=== PATIENT | female | born 1995 | race Caucasian/White ===

== ENCOUNTER 2017-04-03 20:34 | Emergency (ER) | payer OTHER ==
[~2017-04-03] VITALS: Ht 162.6 cm; Wt 93.9 kg
[~2017-04-03 20:34] MED LIST: LISD50CA4 PO; NEOM1SUS21 OT; VENL-273 PO
[2017-04-03 20:36] VITALS: TEMP 36.9; Ht 162.6 cm; Wt 93.9 kg
[2017-04-03] MEDS ORDERED: LORAZEPAM 1 MG TAB SL STA (20:56)
--- NOTE | 2017-04-03 21:16 | EMERGENCY ROOM VISIT NOTE ---
History Report prepared by James: Bridgett Duffy Under the Supervision of: Dr. Dallas Echevarria D.O. First contact with patient: 20:42 Chief Complaint: ANXIETY Stated Complaint: ANIXETY ATTACK History of Present Illness The patient is a 21 year old female who presents to the Emergency Room with complaints of persistent anxiety starting 20-30 minutes ago. The patient thinks that she is having an anxiety attack. She has been having some anxiety over the past 4-5 days. These episodes did not last as long as today. She is worried about passing out. She had some Xanax [employer]ICLE [employer]ER. She feels her heart racing and butterflies in her stomach. She feels like she needs to focus on her breathing. She does not think that she needs inpatient psychiatric care. She notes that her anxiety started worsening after she quit smoking around 2 weeks ago. She admits to occasional marijuana and alcohol use. She last used marijuana earlier today, but does not think that this is contributing to her anxiety. She denies any fevers or recent illness. She notes a family history of anxiety disorders. Her last menstrual period was 2 weeks ago. She was recently started on medications for OCD. Source of History: patient Onset: 20-30 minutes ago Position: other (global) Quality: other (anxiety) Timing: other (persistent) Associated Symptoms: No fevers Note: Pt reports heart racing. Review of Systems See HPI for pertinent positives & negatives. A total of 10 systems reviewed and were otherwise negative. Past Medical & Surgical Medical Problems: (1) ADHD (attention deficit hyperactivity disorder) (2) Migraine (3) Panic disorder Surgical Problems: (1) No significant past surgical history Family History Anxiety disorder Social History Smoking Status: Current Every Day Smoker Alcohol Use: occasionally Drug Use: marijuana Occupation Status: [employer] student Current/Historical Medications Scheduled Lisdexamfetamine Dimesylate (Vyvanse), 50 MG PO DAILY Wsytlxhl-Frihdlgxx-Ep Otic (Cortisporin Otic), 4 DROPS OT QID Venlafaxine Hcl (Venlafaxine Hcl Er), 150 MG PO DAILY Allergies Coded Allergies: No Known Allergies (Unverified , 08/16/15) Physical Exam Vital Signs Date Time Temp Pulse Resp B/P (MAP) Pulse Ox O2 Delivery O2 Flow Rate FiO2 04/03/17 20:36 36.9 122 22 165/88 99 Room Air Physical Exam CONSTITUTIONAL/VITAL SIGNS: Reviewed / noted above. GENERAL: Non-toxic in appearance. INTEGUMENTARY: Warm, dry, and [place]. HEAD: Normocephalic. EYES: without scleral icterus or trauma. ENT/OROPHARYNX: clear and moist. LYMPHADENOPATHY/NECK: Is supple without lymphadenopathy or meningismus. RESPIRATORY: Lungs clear and equal. CARDIOVASCULAR: Regular rate and rhythm. GI/ABDOMEN: Soft and nontender. No organomegaly or pulsatile mass. No rebound or guarding. Normal bowel sounds. EXTREMITIES: Warm and well perfused. BACK: No CVA tenderness. NEUROLOGICAL: Intact without focal deficits. PSYCHIATRIC: mildly anxious appearing. MUSCULOSKELETAL: Normally developed with good muscle tone. Medical Decision & Procedures Medications Administered Medications (Trade) Dose Ordered Sig/Bernard Route Start Time Stop Time Status Last Admin Dose Admin Lorazepam (Ativan Tab) 1 mg NOW STAT SL 04/03/17 20:56 04/03/17 20:57 DC 04/03/17 21:02 1 MG ED Course 2046: Previous medical records were reviewed. The patient was evaluated in room A8. A complete history and physical examination was performed. I discussed the results and findings with the patient. She verbalized agreement of the treatment plan. She was discharged home. 2055: Ativan Tab 1 mg SL. Medical Decision differential includes toxic ingestions, self-mutilation, suicidal ideation, suicide attempt, depression. This is a 21-year-old female who presents to the ED with a chief complaint of anxiety. The patient states that her symptoms started about 20-30 minutes prior to arrival. She felt like her heart is racing and she feels Potter flies in her stomach in all over. She states that she has been having this about once a day for the past 5 days. She reports using marijuana today. She does see a psychiatrist for OCD. She is on medication for this. She denies being suicidal or homicidal. Her physical exam was unremarkable. She appears mildly anxious. She was treated with Ativan sublingual 1 mg. She is feeling better and felt to be stable for discharge. She was advised to talk to her psychiatrist about her recent symptoms. Medication Reconcilliation Current Medication List: was personally reviewed by me Blood Pressure Screening Patient's blood pressure: Elevated blood pressure Blood pressure disposition: Elevated BP felt to be situational Impression Primary Impression: Anxiety Scribe Attestation The scribe's documentation has been prepared under my direction and personally reviewed by me in its entirety. I confirm that the note above accurately reflects all work, treatment, procedures, and medical decision making performed by me. Departure Information Dispostion Home / Self-Care Referrals No Doctor, Assigned (PCP) Patient Instructions My [facility] Additional Instructions Follow-up with your psychiatrist and talk to him/her about your symptoms.
[2017-04-03 21:48] VITALS: BP 131/81; PULSE 92; O2SAT 99
[2017-04-19] MEDS ORDERED: KLN/5 PO (19:42)
== END 2017-04-03 21:49 | disposition home or self-care (01) ==
LOC: C.EDB 20:36 → C.EDA 21:49
DX: F41.9 Anxiety disorder, unspecified (principal); F90.9 Attention-deficit hyperactivity disorder, unspecified type; F41.0 Panic disorder [episodic paroxysmal anxiety]; F17.210 Nicotine dependence, cigarettes, uncomplicated; Z79.899 Other long term (current) drug therapy

== ENCOUNTER 2017-04-19 18:56 | Emergency (ER) | payer OTHER ==
[~2017-04-19] VITALS: Ht 162.6 cm; Wt 89.4 kg
[~2017-04-19 18:56] MED LIST changes: -NEOM1SUS21 OT; -VENL-273 PO
[2017-04-19 19:05] VITALS: BP 141/97; PULSE 83; TEMP 36.8; O2SAT 98; Ht 162.6 cm; Wt 89.4 kg
[2017-04-19] MEDS ORDERED: PROMETHAZINE HCL INJ 25 MG/ML 1 ML VIAL IM STA (19:26)
[2017-04-19] MEDS ORDERED: KETOROLAC TROMETHAMINE 60 MG/2 ML VIAL IM STA (19:26)
[2017-04-19] MEDS ORDERED: CLON0.5T3 PO (19:42)
[2017-04-19] MEDS ORDERED: FLUV100T12 PO (19:42)
--- NOTE | 2017-04-19 19:59 | EMERGENCY ROOM VISIT NOTE ---
ED Visit Note First contact with patient: 19:14 CHIEF COMPLAINT: "I'm having the worst hangover times a million" HISTORY OF PRESENT ILLNESS: patient is a 21-year-old white female who presents to the emergency department for evaluation of a "hangover." She admits to drinking beer to excess last evening, she estimates she had about 8 beers to drink. She states that she hasn't had any alcohol to drink in about a month, so this was a lot to drink for her. She states that she woke up this morning, and tried to take her regular medications after which she vomited. She tried sipping on fluids throughout the day, but has continued to vomit, most recently in a parking lot prior to coming into the emergency department. She describes a throbbing, generalized headache that she rates a 9/10. She tried applying heat to her neck, cold compresses to her forehead and sleeping, but she is still retching and nauseous. She denies any other coingestions including illicit drug use. She denies any trauma or head injury. She denies any abdominal pain, and reports no profuse diarrhea. She does not feel like she is ill. REVIEW OF SYSTEMS: Review of systems as per HPI. All other systems reviewed were negative. 10 systems reviewed. PMH: Electronic medical records are reviewed and summarized as above/below. See Problem List. SOCIAL HISTORY: Patient is a college student from near [facility], who lives locally with her boyfriend. She does not smoke, drinks alcohol socially. PHYSICAL EXAM: Vital Signs: Reviewed Nurse's notes. General Appearance: Patient is a slightly anxious, otherwise well-appearing 21- year-old white female who is awake and alert and in mild distress due to her stated complaint. HEENT: Normocephalic, atraumatic. Pupils equal, round, reactive to light and accommodation. EOMs intact without nystagmus. Sclera are anicteric. Tympanic membranes intact, with normal landmarks. External canals are clear. Oral and nasopharynx are clear. Mucous membranes are moist. Neck: Supple, no cervical lymphadenopathy, no meningismus Heart: Regular rate and rhythm, S1 and S2 Lungs: Clear to auscultation bilaterally, no wheezes Rales or rhonchi, no increased work of breathing Abdomen: Soft nontender nondistended. Normal active bowel sounds. No rebound. No guarding. Back: No midline tenderness to palpation. : No CVA tenderness to palpation. Skin: Warm, no diaphoresis, no rashes. Extremities: No cyanosis, clubbing, or edema Neurologic: Patient is awake alert, and oriented x 3. Cranial nerves 2-12 are grossly intact. Motor 5 out of 5 strength bilateral upper extremities and lower extremities. No gross sensory deficits. Reflexes are 2+ throughout. EMERGENCY DEPARTMENT COURSE: The patient was seen and evaluated as above. Her old records are reviewed. She reports that she is is nauseous and vomiting and has a severe headache after drinking too much alcohol last evening. She denies illicit drug use. She denies trauma. She has a benign physical exam. Treatment options were discussed with her. She was medicated with Toradol 60 mg IM and Phenergan 25 mg IM. She was observed in the emergency department to ensure no adverse reaction to the medications. On reassessment, she felt better. She was given a Zofran home pack. Conservative care measures were discussed. She was advised not to drink alcohol to excess in the future. She was discharged home. She reports she is taking an Uber home. She rated her pain a 6/10 at discharge. Differential includes: acute intracranial bleed, meningitis, encephalitis, mass or mass effect, sinusitis, infection, migraine, tumor, headache, temporal arteritis and carbon monoxide exposure. Medication reconciliation: I attest that I have personally reviewed the patient' s current medication list. Blood pressure screening: Patient was found to have a slightly elevated blood pressure due to circumstances. I do not believe that the patient requires hypertension monitoring. Problem List Medical Problems: (1) ADHD (attention deficit hyperactivity disorder) Status: Chronic (2) Anxiety Status: Resolved (3) Asthma Status: Chronic (4) Asthmatic bronchitis Status: Resolved (5) Dizziness Status: Resolved (6) Headache Status: Resolved (7) Migraine Status: Chronic (8) Mood disorder Status: Resolved (9) Near syncope Status: Resolved (10) Otitis externa Status: Resolved (11) Pain, dental Status: Resolved (12) Pain, dental Status: Resolved (13) Panic attack Status: Resolved (14) Panic disorder Status: Chronic (15) Pilonidal abscess Status: Resolved (16) Pilonidal abscess Status: Resolved (17) Right otitis media Status: Resolved (18) Substernal chest pain Status: Resolved (19) Suicidal ideation Status: Resolved (20) Symptoms of urinary tract infection Status: Resolved (21) URI (upper respiratory infection) Status: Resolved (22) UTI (urinary tract infection) Status: Resolved (23) Vomiting Status: Resolved Current/Historical Medications Scheduled Clonazepam (Klonopin), 0.5 MG PO BID Fluvoxamine Maleate (Luvox), 100 MG PO QPM Allergies Coded Allergies: No Known Allergies (Unverified , 04/03/17) Vital Signs Date Time Temp Pulse Resp B/P (MAP) Pulse Ox O2 Delivery O2 Flow Rate FiO2 04/19/17 19:05 36.8 83 18 141/97 98 Room Air Medications Administered Medications (Trade) Dose Ordered Sig/Bernard Route Start Time Stop Time Status Last Admin Dose Admin Ketorolac Tromethamine (Toradol Inj) 60 mg NOW STAT IM 04/19/17 19:26 04/19/17 19:28 DC 04/19/17 19:32 60 MG Promethazine HCl (Phenergan Inj) 25 mg NOW STAT IM 04/19/17 19:26 04/19/17 19:28 DC 04/19/17 19:33 25 MG Ondansetron HCl (ZOFRAN ODT 4MG Home Pack) 1 homepack UD ONCE PO 04/19/17 20:00 04/19/17 20:01 DC 04/19/17 20:00 1 HOMEPACK Departure Information Impression Primary Impression: Headache Additional Impression: Nausea and vomiting Referrals [facility] (PCP) Patient Instructions My [facility] Additional Instructions DO NOT drive, drink alcohol, operate machinery, or perform dangerous activities today. You were given medications in the ER that can affect your ability to safely function or operate a vehicle. Zofran(odansetron) tablets 4mg: Take one and allow it to dissolve in your mouth every four to six hours as needed for nausea or vomiting. Acetaminophen(Tylenol) may be used for fever or pain. Use 1000mg every six hours as needed. Avoid using more than 4000mg in a 24 hour period. Rest and drink plenty of fluids as tolerated. Slow sips of water or sports drinks are recommended instead of large amounts all at once. Continue current medications. Once your stomach is settled start with a clear liquid diet (jello, soup broth, etc.) and then advance as tolerated. You should avoid full, heavy meals for about 24 hrs from the time your symptoms resolved. Avoid drinking alcohol to excess. Return to the ER for persistent vomiting, fevers, abdominal pain, chest pains, difficulty breathing, black or bloody stools, worsening of your condition, or as needed. Follow up with [facility] this week for a recheck of your current condition. Problem Qualifiers
[2017-04-19] MEDS ORDERED: ONDANSETRON HOME PACK 4MG OD TAB PO ONE (20:00)
== END 2017-04-19 20:21 | disposition home or self-care (01) ==
LOC: C.EDB 18:57 → C.EDD 20:21
DX: R51 Headache (principal); R11.2 Nausea with vomiting, unspecified; J45.909 Unspecified asthma, uncomplicated; Z87.440 Personal history of urinary (tract) infections

== ENCOUNTER → 2017-07-09 | Outpatient (CLI) | payer OTHER ==
[~2017-07-09] MED LIST changes: +CLON0.5T3 PO; +FLUV100T12 PO; -LISD50CA4 PO
== END | disposition home or self-care (01) ==
LOC: C.LABBC 12:02
PROVIDERS: ATTEND Nurse Practitioner Adult Health
DX: Z00.00 Encounter for general adult medical examination without abnormal findings (principal); F41.9 Anxiety disorder, unspecified

== ENCOUNTER 2017-08-01 17:56 | Emergency (ER) | payer OTHER ==
[~2017-08-01] VITALS: Ht 162.6 cm; Wt 100.8 kg
[2017-08-01 18:02] VITALS: TEMP 36.8
[2017-08-01] MEDS ORDERED: MECLIZINE HCL 25 MG TAB PO STA (18:14)
[2017-08-01] MEDS ORDERED: SODIUM CHLORIDE 0.9% 1000ML 1,000 ML IV STA (18:14)
[2017-08-01 18:22] VITALS: O2SAT 100; Ht 162.6 cm; Wt 100.8 kg
[2017-08-01 18:44] LABS: BASO % 0.3 %; BASO ABS # 0.02 K/uL (0-0.2); EOS % 1.1 %; EOS ABS # 0.08 K/uL (0-0.5); HEMATOCRIT 39.8 % (37-47); HEMOGLOBIN 13.6 g/dL (12.0-16.0); IG# 0.03 K/uL (0.00-0.02); LYMPH % 31.4 %; LYMPH ABS # 2.35 K/uL (1.2-3.4); MEAN CELL VOLUME 91.1 fL (80-100); MEAN CORPUSCULAR HEMOGLOBIN 31.1 pg (25-34); MEAN CORPUSCULAR HGB CONC 34.2 g/dl (32-36); MEAN PLATELET VOLUME 8.9 fL (7.4-10.4); MONO % 7.6 %; MONO ABS # 0.57 K/uL (0.11-0.59); NEUT % 59.2 %; NEUT ABS # 4.43 K/uL (1.4-6.5); PLATELET COUNT 214 K/uL (130-400); RED CELL DISTRIBUTION WIDTH CV 12.5 % (11.5-14.5); RED CELL DISTRIBUTION WIDTH SD 42.1 fL (36.4-46.3); WHITE BLOOD COUNT 7.48 K/uL (4.8-10.8)
[2017-08-01 18:55] LABS: PTT PATIENT 27.2 SECONDS (21.0-31.0)
[2017-08-01] MEDS ORDERED: RANI150T3 PO (19:01)
[2017-08-01] MEDS ORDERED: ACET-1256 PO (19:01)
[2017-08-01 19:02] LABS: ALBUMIN 3.8 gm/dl (3.4-5.0); ALT/SGPT 32 U/L (12-78); AST/SGOT 22 U/L (15-37); BLOOD UREA NITROGEN 14 mg/dl (7-18); CALCIUM 8.4 mg/dl (8.5-10.1); CARBON DIOXIDE 28 mmol/L (21-32); CREATININE 0.95 mg/dl (0.60-1.20); GLUCOSE 86 mg/dl (70-99); POTASSIUM 3.6 mmol/L (3.5-5.1); SODIUM 139 mmol/L (136-145)
--- NOTE | 2017-08-01 19:03 | DIAGNOSTIC IMAGING REPORT ---
CHEST ONE VIEW PORTABLE CLINICAL HISTORY: EVALUATE WEAKNESS dyspnea COMPARISON STUDY: 06/26/2015 FINDINGS: The bones soft tissues and hemidiaphragms are normal. The cardiomediastinal silhouette is normal. The lungs are clear. The pulmonary vasculature is normal. IMPRESSION: Negative chest. The above report was generated using voice recognition software. It may contain grammatical, syntax or spelling errors. Electronically signed by: Slim Slater M.D. 08/01/2017 7:02 PM Dictated Date/Time: 08/01/2017 7:02 PM
[2017-08-01 19:13] LABS: ALKALINE PHOSPHATASE 94 U/L (45-117); TOTAL PROTEIN 7.8 gm/dl (6.4-8.2)
--- NOTE | 2017-08-01 19:36 | DIAGNOSTIC IMAGING REPORT ---
HEAD WITHOUT CONTRAST (CT) CT DOSE: 537.48 mGy.cm HISTORY: Mental status change EVALUATE WEAKNESS TECHNIQUE: Multiaxial CT images of the head were performed without the use of intravenous contrast. A dose lowering technique was utilized adhering to the principles of ALARA. Comparison: None. Findings: The paranasal sinuses and mastoid air cells are clear. The calvarium and skull base are intact. The ventricles and sulci are within normal limits. There is no mass, hematoma, midline shift, or acute infarct. Impression: No acute intracranial abnormality. The above report was generated using voice recognition software. It may contain grammatical, syntax or spelling errors. Electronically signed by: Slim Slater M.D. 08/01/2017 7:35 PM Dictated Date/Time: 08/01/2017 7:35 PM
[2017-08-01] MEDS ORDERED: ANT25HP PEG (20:00)
[2017-08-01 20:14] VITALS: BP 128/90; PULSE 84; O2SAT 98
--- NOTE | 2017-08-01 23:48 | EMERGENCY ROOM VISIT NOTE ---
History Report prepared by James: Sandra Negron Under the Supervision of: Raquel HamO. 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 She states this is the second time she has been at working and almost blacked out. She reports the first time this happened, she blew her nose really hard, was seeing stars, and thought she had actually passed out but did not. Today, her episode came "out of nowhere" and she is still moderately dizzy. She notes that she sees things constantly moving. Pt denies headache, fevers, chest pain, shortness of breath, nausea, vomiting, LOC, numbness or tingling in her hands, or thyroid issues. Patient denies diabetes, hypertension, hyperlipidemia, CAD, history of sudden at a young age, and smoking. Patient denies swelling of calves, recent trips, history of immobilization or recent surgery, prior history of DVT, hemoptysis, history of malignancy, history of smoking, or control/ estrogen use. Source of History: patient Onset: 1 week pilot captain Position: other (global) Symptom Intensity: moderate Timing: other ("out of nowhere") Associated Symptoms: + weakness, No LOC, No fevers, No headache, No chest pain, No SOB, No nausea, No vomiting Note: Negative tingling in her hands or thyroid issues. Review of Systems See HPI for pertinent positives & negatives. A total of 10 systems reviewed and were otherwise negative. Past Medical & Surgical Medical Problems: (1) ADHD (attention deficit hyperactivity disorder) (2) Anxiety (3) Asthma (4) Asthmatic bronchitis (5) Dizziness (6) Headache (7) Migraine (8) Mood disorder (9) Near syncope (10) Otitis externa (11) Pain, dental (12) Pain, dental (13) Panic attack (14) Panic disorder (15) Pilonidal abscess (16) Pilonidal abscess (17) Right otitis media (18) Substernal chest pain (19) Suicidal ideation (20) Symptoms of urinary tract infection (21) URI (upper respiratory infection) (22) UTI (urinary tract infection) (23) Vomiting Surgical Problems: (1) No significant past surgical history Family History Anxiety disorder Social History Smoking Status: Former Smoker Alcohol Use: occasionally Drug Use: marijuana Occupation Status: [employer] Current/Historical Medications Scheduled Acetaminophen (Tylenol), 500 MG PO PRN Fluvoxamine Maleate (Luvox), 100 MG PO QPM Meclizine HCl (Meclizine HCl), 25 MG PEG TID Scheduled PRN Ranitidine Hcl (Zantac), 150 MG PO DAILY PRN for REFLUX Allergies Coded Allergies: No Known Allergies (Unverified , 04/03/17) Physical Exam Vital Signs Date Time Temp Pulse Resp B/P (MAP) Pulse Ox O2 Delivery O2 Flow Rate FiO2 08/01/17 20:14 84 20 128/90 98 08/01/17 18:34 83 08/01/17 18:22 100 Room Air 08/01/17 18:22 100 Room Air 08/01/17 18:22 76 20 125/75 100 Room Air 77 122/78 82 112/77 08/01/17 18:02 36.8 91 20 143/98 99 Room Air Physical Exam GENERAL: Sitting up in bed, alert, well appearing, well nourished, no distress, non-toxic EYE EXAM: normal conjunctiva. PERRL and EOM's intact. OROPHARYNX: no exudate, no erythema, lips, buccal mucosa, and tongue normal and mucous membranes are moist NECK: supple, no nuchal rigidity, no adenopathy, non-tender LUNGS: Clear to auscultation. Normal chest wall mechanics HEART: no murmurs, S1 normal and S2 normal ABDOMEN: abdomen soft, non-tender, normo-active bowel sounds, no masses, no rebound or guarding. BACK: Back is symmetrical on inspection and there is no deformity, no midline tenderness, no CVA tenderness. SKIN: no rashes and no bruising UPPER EXTREMITIES: upper extremities are grossly normal. LOWER EXTREMITIES: No pitting edema. NEURO EXAM: Normal sensorium, cranial nerves II-XII intact, normal speech, no weakness of arms, no weakness of legs. No drift. Finger to nose intact. Gross sensation intact. Medical Decision & Procedures ER Provider Diagnostic Interpretation: Radiology results as stated below per my review and the radiologist's interpretation: HEAD WITHOUT CONTRAST (CT) CT DOSE: 537.48 mGy.cm HISTORY: Mental status change EVALUATE WEAKNESS TECHNIQUE: Multiaxial CT images of the head were performed without the use of intravenous contrast. A dose lowering technique was utilized adhering to the principles of ALARA. Comparison: None. Findings: The paranasal sinuses and mastoid air cells are clear. The calvarium and skull base are intact. The ventricles and sulci are within normal limits. There is no mass, hematoma, midline shift, or acute infarct. Impression: No acute intracranial abnormality. The above report was generated using voice recognition software. It may contain grammatical, syntax or spelling errors. Electronically signed by: Slim Slater M.D. 08/01/2017 7:35 PM CHEST ONE VIEW PORTABLE CLINICAL HISTORY: EVALUATE WEAKNESS dyspnea COMPARISON STUDY: 06/26/2015 FINDINGS: The bones soft tissues and hemidiaphragms are normal. The cardiomediastinal silhouette is normal. The lungs are clear. The pulmonary vasculature is normal. IMPRESSION: Negative chest. The above report was generated using voice recognition software. It may contain grammatical, syntax or spelling errors. Electronically signed by: Slim Slater M.D. 08/01/2017 7:02 PM Laboratory Results 08/01/17 18:25 Red Blood Count 4.37, Mean Corpuscular Volume 91.1, Mean Corpuscular Hemoglobin 31.1, Mean Corpuscular Hemoglobin Concent 34.2, Mean Platelet Volume 8.9, Neutrophils (%) (Auto) 59.2, Lymphocytes (%) (Auto) 31.4, Monocytes (%) (Auto) 7.6, Eosinophils (%) (Auto) 1.1, Basophils (%) (Auto) 0.3, Neutrophils # (Auto) 4.43, Lymphocytes # (Auto) 2.35, Monocytes # (Auto) 0.57, Eosinophils # (Auto) 0.08, Basophils # (Auto) 0.02 08/01/17 18:25 Test 08/01/17 18:25 08/01/17 19:10 White Blood Count 7.48 K/uL (4.8-10.8) Red Blood Count 4.37 M/uL (4.2-5.4) Hemoglobin 13.6 g/dL (12.0-16.0) Hematocrit 39.8 % (37-47) Mean Corpuscular Volume 91.1 fL (80-100) Mean Corpuscular Hemoglobin 31.1 pg (25-34) Mean Corpuscular Hemoglobin Concent 34.2 g/dl (32-36) Platelet Count 214 K/uL (130-400) Mean Platelet Volume 8.9 fL (7.4-10.4) Neutrophils (%) (Auto) 59.2 % Lymphocytes (%) (Auto) 31.4 % Monocytes (%) (Auto) 7.6 % Eosinophils (%) (Auto) 1.1 % Basophils (%) (Auto) 0.3 % Neutrophils # (Auto) 4.43 K/uL (1.4-6.5) Lymphocytes # (Auto) 2.35 K/uL (1.2-3.4) Monocytes # (Auto) 0.57 K/uL (0.11-0.59) Eosinophils # (Auto) 0.08 K/uL (0-0.5) Basophils # (Auto) 0.02 K/uL (0-0.2) RDW Standard Deviation 42.1 fL (36.4-46.3) RDW Coefficient of Variation 12.5 % (11.5-14.5) Immature Granulocyte % (Auto) 0.4 % Immature Granulocyte # (Auto) 0.03 K/uL (0.00-0.02) Prothrombin Time 10.1 SECONDS (9.0-12.0) Prothromb Time International Ratio 1.0 (0.9-1.1) Activated Partial Thromboplast Time 27.2 SECONDS (21.0-31.0) Partial Thromboplastin Ratio 1.0 Anion Gap 5.0 mmol/L (3-11) Est Creatinine Clear Calc Drug Dose 106.4 ml/min Estimated GFR () 97.8 Estimated GFR (Non- 84.4 BUN/Creatinine Ratio 15.2 (10-20) Calcium Level 8.4 mg/dl (8.5-10.1) Total Bilirubin 0.3 mg/dl (0.2-1) Direct Bilirubin 0.1 mg/dl (0-0.2) Aspartate Amino Transf (AST/SGOT) 22 U/L (15-37) Alanine Aminotransferase (ALT/SGPT) 32 U/L (12-78) Alkaline Phosphatase 94 U/L (45-117) Troponin I < 0.015 ng/ml (0-0.045) Total Protein 7.8 gm/dl (6.4-8.2) Albumin 3.8 gm/dl (3.4-5.0) Thyroid Stimulating Hormone (TSH) 2.170 uIu/ml (0.300-4.500) Urine Color YELLOW Urine Appearance CLEAR (CLEAR) Urine pH 6.5 (4.5-7.5) Urine Specific [place] 1.019 (1.000-1.030) Urine Protein NEG (NEG) Urine Glucose (UA) NEG (NEG) Urine Ketones NEG (NEG) Urine Occult Blood NEG (NEG) Urine Nitrite NEG (NEG) Urine Bilirubin NEG (NEG) Urine Urobilinogen NEG (NEG) Urine Leukocyte Esterase NEG (NEG) Laboratory results per my review. Medications Administered Medications (Trade) Dose Ordered Sig/Bernard Route Start Time Stop Time Status Last Admin Dose Admin Sodium Chloride 1,000 ml @ 999 mls/hr Q1H1M STAT IV 08/01/17 18:14 08/01/17 19:14 DC 08/01/17 18:34 999 MLS/HR Meclizine HCl (Antivert Tab) 25 mg NOW STAT PO 08/01/17 18:14 08/01/17 18:16 DC 08/01/17 18:34 25 MG ECG Per My Interpretation Indication: other (dizziness) Rate (beats per minute): 86 Rhythm: sinus rhythm Findings: no ectopy, other (normal axis) ED Course ED COURSE: Vital signs were reviewed and showed tachycardia The patients medical record was reviewed The above diagnostic studies were performed and reviewed. ED treatments and interventions as stated above. 1806: The patient was evaluated in room A11. A complete history and physical examination was performed. 1813: Antivert Tab 25 mg PO Sodium Chloride 1000 ml @ 999 mls/hr IV 1999: Upon reevaluation, the patient is agreeable.I discussed my findings with the patient and she understands and agrees with the treatment plan. Based on the patients age, coexisting illnesses, exam and lab findings the decision to treat as an outpatient was made. The patient remained stable while under my care. The patient appeared well at the time of discharge. Medical Decision Differential diagnosis includes etiologies such as benign positional vertigo, dehydration, hypovolemia, anemia, tumor, infection, hypoglycemia, electrolyte abnormalities, cardiac sources, intracerebral event, toxicologic, neurologic, as well as others were entertained. Patient is a 21-year-old female who presents to ER for 2 episodes of near syncope over the course of the past week. She has no other complaints. Initial episode started after blowing her nose and resolved. Today it happened without any prodromal symptoms. She has been intermittently dizzy over the course the past week. CBC along with BMP, LFTs, bilirubin, troponin and TSH were unremarkable. UA was negative. INR was normal. CT head was negative. Chest x-ray and EKG were unremarkable. Patient was given Antivert and felt slightly better. She is updated at bedside. Discharge follow-up with PCP as an outpatient as there were no central signs and her history appears to be more consistent with peripheral vertigo. Symptoms did resolve with Antivert. Discussed with Pt concerning signs and symptoms to watch out for. Pt was instructed to follow up with their PCP and discussed with the patient their option to return to the ED at anytime for persistent or worsening symptoms. The appropriate anticipatory guidance and out-patient management, including indications for return to the emergency department, were explained at length to the patient and understood. Medication Reconcilliation Current Medication List: was personally reviewed by me Blood Pressure Screening Patient's blood pressure: Elevated blood pressure Blood pressure disposition: Elevated BP felt to be situational Impression Primary Impression: Dizziness Scribe Attestation The scribe's documentation has been prepared under my direction and personally reviewed by me in its entirety. I confirm that the note above accurately reflects all work, treatment, procedures, and medical decision making performed by me. Departure Information Dispostion Home / Self-Care Prescriptions Meclizine HCl (Meclizine HCl) 25 Mg Tab 25 MG PEG TID for 5 Days Prov: Ash Briceño DO 08/01/17 Referrals [facility] (PCP) Patient Instructions My [facility] Additional Instructions Please follow up with your primary care doctor with in the next 24 hours. Any worsening of your symptoms, please return to the ED immediately. This includes any fevers greater than 100.4, worsening pain, chest pain, shortness breath, persistent nausea, vomiting, unable to eat or drink, or any other concerning signs or symptoms from your standpoint. Please do not drive while you have these symptoms.
== END 2017-08-01 20:15 | disposition home or self-care (01) ==
LOC: C.EDB 17:57 → C.EDA 20:15
DX: R42 Dizziness and giddiness (principal); F90.9 Attention-deficit hyperactivity disorder, unspecified type; J45.909 Unspecified asthma, uncomplicated; F39 Unspecified mood [affective] disorder; F41.0 Panic disorder [episodic paroxysmal anxiety]; Z87.440 Personal history of urinary (tract) infections; Z81.8 Family history of other mental and behavioral disorders; Z87.891 Personal history of nicotine dependence; Z79.899 Other long term (current) drug therapy

== ENCOUNTER → 2017-11-17 | Outpatient (CLI) | payer OTHER ==
[~2017-11-17] MED LIST changes: +ACET-1256 PO; +ANT25HP PEG; -CLON0.5T3 PO; +RANI150T3 PO
[2017-11-17 12:46] LABS: HEMOGLOBIN A1C 5.4 % (4.5-5.6)
[2017-11-17 12:48] LABS: ALBUMIN 3.9 gm/dl (3.4-5.0); ALKALINE PHOSPHATASE 89 U/L (45-117); ALT/SGPT 101 U/L (12-78); AST/SGOT 37 U/L (15-37); BLOOD UREA NITROGEN 14 mg/dl (7-18); CALCIUM 8.7 mg/dl (8.5-10.1); CARBON DIOXIDE 24 mmol/L (21-32); CREATININE 0.75 mg/dl (0.60-1.20); GLUCOSE 94 mg/dl (70-99); POTASSIUM 3.9 mmol/L (3.5-5.1); SODIUM 137 mmol/L (136-145); TOTAL PROTEIN 7.6 gm/dl (6.4-8.2)
== END | disposition home or self-care (01) ==
LOC: C.LAB1850 10:12
PROVIDERS: ATTEND Physician Assistant
DX: N91.2 Amenorrhea, unspecified (principal); R63.5 Abnormal weight gain